=== PATIENT | male | born 1985 | race Two or more races ===

== ENCOUNTER 2024-03-17 23:32 | Inpatient (IN) | payer OTHER ==
[~2024-03-17] VITALS: Ht 261.6 cm; Wt 95.3 kg
[2024-03-18] MEDS ORDERED: 0.9 % SODIUM CHLORIDE 1,000 ML IV ONE (01:15)
[2024-03-18] MEDS ORDERED: ACETAMINOPHEN 500 MG GEL..CAP PO STA (01:46)
[2024-03-18 02:30] LABS: HEMATOCRIT 42.4 % (39.0-48.0); HEMOGLOBIN 14.6 g/dL (13-16.00); MEAN CORPUSCULAR HEMOGLOBIN 30.5 pg (27.00-32.0); MEAN CORPUSCULAR HGB CONC 34.3 g/dl (32.0-36.0); PLATELET COUNT 238 K/uL (150-450); RED BLOOD COUNT 4.77 M/uL (4.00-6.00)
[2024-03-18 02:31] LABS: PH,URINE 5.5 (5.0-8.0); URINE APPEARANCE Cloudy; URINE BILIRRUBIN Small (NEGATIVE); URINE BLOOD Large; URINE COLOR Dark Yellow; URINE GLUCOSE Negative (NEGATIVE); URINE KETONE 15 (NEGATIVE); URINE LEUKOCYTE Moderate; URINE NITRATE Positive
[2024-03-18 02:35] LABS: URINE BACTERIA 1482.9 uL (0.0-1933); URINE CAST 7.32 uL (0.0-1.40); URINE EPITHELIAL CELLS 7.8 uL (0.0-38.8); URINE RBC 62.4 uL (0.0-20.8); URINE WBC 1466.2 uL (0.0-23.2)
[2024-03-18 02:48] LABS: ALBUMIN 3.4 gm/dL (3.4-5.0); BILIRUBIN TOTAL 0.81 mg/dL (0.3-1.2); CREATININE SERUM 0.96 mg/dL (0.70-1.30); GFR 88.63; GLOBULINA 3.5 G/DL (2.4-3.5); POTASSIUM 4.29 mEq/L (3.5-5.1); TOTAL PROTEIN 6.9 gm/dL (6.4-8.2)
[2024-03-18 02:51] LABS: URINE MUCUS MODERATE; URINE PROTEIN 100 (NEGATIVE)
[2024-03-18] MEDS ORDERED: CEFTRIAXONE SODIUM 1,000 MG VIAL IV STA ×2 (03:38→08:48)
[2024-03-18] MEDS ORDERED: TICAGRELOR 90 MG TABLET PO STA (03:50)
[2024-03-18] MEDS ORDERED: ASPIRIN 325 MG TABLET.EC PO STA (03:50)
[2024-03-18] MEDS ORDERED: NITROGLYCERIN 250 ML IV SCH (04:00)
[2024-03-18] MEDS ORDERED: ORPHENADRINE CITRATE 30 MG/ML AMPUL IM STA (05:40)
[2024-03-18] MEDS ORDERED: NITROGLYCERIN IN 5 % DEXTROSE 250 ML IV SCH (07:00)
[2024-03-18] MEDS ORDERED: 0.9 % SODIUM CHLORIDE 1,000 ML IV STA (08:55)
[2024-03-18] MEDS ORDERED: FAMOTIDINE/PF 20 MG/2 ML VIAL IV SCH (09:00)
[2024-03-18] MEDS ORDERED: RINGERS SOLUTION,LACTATED 1,000 ML IV SCH (09:00)
[2024-03-18] MEDS ORDERED: ENOXAPARIN SODIUM 40 MG/0.4 ML SYRINGE SUBCUTANEO SCH (09:00)
[2024-03-18 11:12] LABS: COCAINE NEGATIVE (NEGATIVE); METHADONE NEGATIVE (NEGATIVE); OPIATES NEGATIVE (NEGATIVE); THC ( Cannabinoids) NEGATIVE (NEGATIVE)
[2024-03-18 12:26] LABS: MAGNESIUM 1.9 mg/dL (1.8-2.4); PHOSPHOROUS 2.4 mg/dL (2.5-4.9)
[2024-03-18 12:41] VITALS: BP 13/62
[2024-03-18 17:52] VITALS: BP 143/82
[2024-03-18] MEDS ORDERED: ACETAMINOPHEN 500 MG GEL..CAP PO PRN (21:00)
[2024-03-18] MEDS ORDERED: SODIUM PHOS,M-BASIC-D-BASIC 3 MMOL/ML VIAL IV ONE (22:00)
[2024-03-19 01:15] VITALS: BP 140/83; O2SAT 96
[2024-03-19 06:31] LABS: HEMATOCRIT 42.7 % (39.0-48.0); HEMOGLOBIN 14.7 g/dL (13-16.00); MEAN CELL VOLUME 87.6 fL (80.0-100.00); MEAN CORPUSCULAR HEMOGLOBIN 30.1 pg (27.00-32.0); MEAN CORPUSCULAR HGB CONC 34.3 g/dl (32.0-36.0); PLATELET COUNT 242 K/uL (150-450); RED BLOOD COUNT 4.88 M/uL (4.00-6.00); RED CELL DISTRIBUTION WIDTH 13.3 % (11.5-14.5)
[2024-03-19 07:14] LABS: ALBUMIN 3.1 gm/dL (3.4-5.0); BILIRUBIN TOTAL 0.52 mg/dL (0.3-1.2); CALCIUM 8.8 mg/dL (8.5-10.1); CREATININE SERUM 0.82 mg/dL (0.70-1.30); GFR 106.31; GLOBULINA 3.3 G/DL (2.4-3.5); POTASSIUM 4.19 mEq/L (3.5-5.1); TOTAL PROTEIN 6.4 gm/dL (6.4-8.2)
[2024-03-19 09:00] VITALS: BP 130/80
[2024-03-19] MEDS ORDERED: CEFTRIAXONE SODIUM 2,000 MG VIAL IV SCH (09:00)
[2024-03-19 16:57] VITALS: BP 111/69; O2SAT 98
[2024-03-20 01:44] VITALS: BP 133/92; O2SAT 97
[2024-03-20 09:53] VITALS: BP 133/87; O2SAT 99
[2024-03-20 15:52] LABS: CALCIUM 8.6 mg/dL (8.5-10.1); CREATININE SERUM 0.72 mg/dL (0.70-1.30); GFR 123.52
[2024-03-20 15:59] LABS: C-REACTIVE PROTEIN 6.84 MG/DL (0.00-0.29)
[2024-03-20 16:50] VITALS: BP 124/79; O2SAT 99
[2024-03-21 01:04] LABS: chla t Negative (Negative); neiss Negative (Negative)
[2024-03-21 02:24] VITALS: BP 136/85; O2SAT 96
[2024-03-21] MEDS ORDERED: CEFUROXIME500 MG PO (14:06)
[2024-03-21] MEDS ORDERED: INTESTINEX680 M1 PO (14:07)
[2024-03-22] MEDS ORDERED: FAMOtidine 20 MG TABLET PO SCH (09:00)
== END 2024-03-21 15:40 | disposition home or self-care (01) | DRG 872 ==
LOC: ER 23:32 → MEDI 03-18 09:12
PROVIDERS: General Practice; Internal Medicine; Student in an Organized Health Care Education/Training Program; ADMIT Internal Medicine; ATTEND Internal Medicine
PROC: BW28ZZZ Computerized Tomography (CT Scan) of Head (ICD-10-PCS; principal; 2024-03-18)
PROC: BB24YZZ Computerized Tomography (CT Scan) of Bilateral Lungs using Other Contrast (ICD-10-PCS; 2024-03-18)
DX: A41.9 Sepsis, unspecified organism (principal); N39.0 Urinary tract infection, site not specified; D72.828 Other elevated white blood cell count; R31.9 Hematuria, unspecified; R42 Dizziness and giddiness

== ENCOUNTER 2024-11-08 19:27 | Inpatient (IN) | payer OTHER ==
[~2024-11-08] VITALS: Ht 172.7 cm; Wt 97.5 kg
[~2024-11-08 19:27] MED LIST: CEFUROXIME500 MG PO; INTESTINEX680 M1 PO
[2024-11-08] MEDS ORDERED: FAMOTIDINE/PF 20 MG in 0.9 % SODIUM CHLORIDE 8 ML IV PUSH STA (20:00)
[2024-11-08] MEDS ORDERED: TICAGRELOR 90 MG TABLET PO ONE (20:00)
[2024-11-08] MEDS ORDERED: ASPIRIN 325 MG TABLET PO ONE (20:00)
[2024-11-08] MEDS ORDERED: NITROGLYCERIN 0.4 MG/HR PATCH.TD24 TD ONE (20:04)
[2024-11-08] MEDS ORDERED: ASPIRIN 325 MG TABLET.EC PO ONE (20:04)
[2024-11-08] MEDS ORDERED: FAMOTIDINE/PF 20 MG/2 ML VIAL ONE (20:04)
[2024-11-08] MEDS ORDERED: 0.9 % SODIUM CHLORIDE 1,000 ML IV SCH ×2 (20:15→21:45)
[2024-11-08] MEDS ORDERED: NITROGLYCERIN 0.4 MG TAB.SUBL SL SCH (20:15)
[2024-11-08] MEDS ORDERED: NITROGLYCERIN IN 5 % DEXTROSE 50 MG/250 ML BOTTLE IV ONE (20:24)
[2024-11-08] MEDS ORDERED: NITROGLYCERIN 250 ML IV SCH (20:30)
[2024-11-08 20:43] LABS: BASO % 0.2 % (0.1-1.2); EOS # 0.02 (0.04-0.54); EOS % 0.2 % (0.7-7.0); HEMATOCRIT 48.5 % (40.1-51.0); HEMOGLOBIN 16.7 g/dL (13.7-17.5); LYMPH # 0.75 (1.18-3.74); LYMPH % 8.1 % (19.3-53.1); MEAN CORPUSCULAR HEMOGLOBIN 29.6 pg (25.6-32.2); MONO # 0.49 (0.24-0.82); MONO % 5.3 % (4.7-12.5); NEUT # 7.89 (1.56-6.13); NEUT % 85.7 % (34.0-71.1); PLATELET COUNT 271 K/uL (163-369); RED BLOOD COUNT 5.65 M/uL (4.63-6.08); RED CELL DISTRIBUTION WIDTH 12.5 % (11.6-14.4)
[2024-11-08 21:05] LABS: BILIRUBIN TOTAL 0.47 mg/dL (0.3-1.2); CREATININE SERUM 0.88 mg/dL (0.70-1.30); GFR 97.44; POTASSIUM 3.91 mEq/L (3.5-5.1)
[2024-11-08] MEDS ORDERED: METOPROLOL SUCCINATE 50 MG TAB.SR.24H PO SCH (21:39)
[2024-11-08] MEDS ORDERED: ENOXAPARIN SODIUM 80 MG/0.8 ML SYRINGE SUBCUTANEO SCH (21:39)
[2024-11-08] MEDS ORDERED: LOSARTAN POTASSIUM 25 MG TABLET PO SCH (21:39)
[2024-11-08] MEDS ORDERED: ATORVASTATIN CALCIUM 40 MG TABLET PO SCH (21:39)
[2024-11-08] MEDS ORDERED: ACETAMINOPHEN 500 MG GEL..CAP PO PRN (21:45)
[2024-11-08] MEDS ORDERED: ACETAMINOPHEN 500 MG GEL..CAP PO ONE (23:30)
[2024-11-09] VITALS (15 sets, daily range): BP systolic 106–128; BP diastolic 62–83; O2SAT 89–100
[2024-11-09 02:03] LABS: INR 1.01
[2024-11-09 02:06] LABS: D DIMER 0.26 MG/L; PARTIAL THROMBOPLASTIN TIME 26.4 SECONDS (22.0-34.0)
[2024-11-09] MEDS ORDERED: ASPIRIN 81 MG TAB.CHEW PO SCH (09:00)
[2024-11-09] MEDS ORDERED: FAMOTIDINE/PF 20 MG in 0.9 % SODIUM CHLORIDE 8 ML IV PUSH SCH (09:00)
[2024-11-09] MEDS ORDERED: TICAGRELOR 90 MG TABLET PO SCH (09:00)
[2024-11-09] MEDS ORDERED: hydrALAZINE HCL 20 MG VIAL IV PRN (12:00)
[2024-11-09] MEDS ORDERED: LOSARTAN POTASSIUM 25 MG TABLET PO STA (12:06)
[2024-11-09 13:56] LABS: PH,URINE 7.5 (5.0-8.0); URINE APPEARANCE Clear; URINE BILIRRUBIN Negative (NEGATIVE); URINE BLOOD Negative; URINE COLOR Yellow; URINE GLUCOSE Negative (NEGATIVE); URINE KETONE Negative (NEGATIVE); URINE LEUKOCYTE Trace; URINE NITRATE Negative; URINE PROTEIN Negative (NEGATIVE)
[2024-11-09 14:00] LABS: URINE BACTERIA 888.5 uL (0.0-1933); URINE WBC 57.4 uL (0.0-23.2)
[2024-11-09 14:08] LABS: URINE CAST 0.14 uL (0.0-1.40); URINE RBC 0.4 uL (0.0-20.8)
[2024-11-09] MEDS ORDERED: PANTOPRAZOLE SODIUM 40 MG TABLET.DR PO SCH (17:00)
[2024-11-09] MEDS ORDERED: METOPROLOL SUCCINATE 25 MG TAB.SR.24H PO SCH (17:00)
[2024-11-10 00:46] VITALS: BP 125/81
[2024-11-10 01:47] VITALS: O2SAT 90
[2024-11-10 05:51] VITALS: O2SAT 96
[2024-11-10 08:30] VITALS: O2SAT 96
[2024-11-10] MEDS ORDERED: LOSARTAN POTASSIUM 50 MG TABLET PO SCH (09:00)
[2024-11-10 10:24] VITALS: BP 115/76; O2SAT 96
[2024-11-10] MEDS ORDERED: COZAAR50 MG PO (11:05)
[2024-11-10] MEDS ORDERED: TOPROL XL25 M1 PO (11:05)
[2024-11-10] MEDS ORDERED: PANTOPRAZOLE SO40 MG PO (11:06)
[2024-11-10] MEDS ORDERED: ADULT ASPIRIN81 MG PO (11:06)
[2024-11-10 12:51] VITALS: O2SAT 98
== END 2024-11-10 13:32 | disposition home or self-care (01) | DRG 392 ==
LOC: ER 19:27 → ICU 22:10 → ICU-2 22:10 → ICU 11-09 03:14 → MEDJ 11-09 13:02
PROVIDERS: General Practice; ADMIT Internal Medicine; ATTEND Internal Medicine
PROC: B24BZZZ Ultrasonography of Heart with Aorta (ICD-10-PCS; principal; 2024-11-08)
PROC: 4A12X4Z Monitoring of Cardiac Electrical Activity, External Approach (ICD-10-PCS; 2024-11-09)
DX: K22.4 Dyskinesia of esophagus (principal); I10 Essential (primary) hypertension; Z72.0 Tobacco use